=== PATIENT | female | born 1995 | race African-American/Black ===

== ENCOUNTER 2024-07-17 18:32 | Emergency (ER) | payer OTHER ==
[~2024-07-17] VITALS: Ht 152.4 cm; Wt 61.0 kg
[2024-07-17 18:34] VITALS: TEMP 36.5; O2SAT 100
[2024-07-17 19:00] VITALS: BP 128/87; PULSE 77; RESP 18
[2024-07-17] MEDS: HYDROCODONE/ACETAMINOPHEN 5/325MG TABLET PO STA (19:00)
[2024-07-17 19:12] LABS: BASOPHILS % 0.9 % (0.0-2.0); EOSINOPHILS % 6.6 % (0.0-5.0); HEMATOCRIT. 39.5 % (36.0-48.0); HEMOGLOBIN. 13.3 g/dL (12.0-16.0); LYMPHOCYTES % 34.8 % (20.0-50.0); MEAN CORPUSCULAR HEMOGLOBIN 30.6 pg (28.0-32.0); MEAN CORPUSCULAR HGB CONC 33.8 g/dL (31.0-37.0); MEAN CORPUSCULAR VOLUME 90.4 fL (81.0-99.0); MEAN PLATELET VOLUME 9.7 fl (7.4-10.4); MONOCYTES % 6.3 % (2.0-8.0); NEUTROPHILS % 51.4 % (40.0-76.0); PLATELET 224 x1000/uL (130-400); RED BLOOD CELL COUNT 4.37 mill/uL (4.2-5.4); RED CELL DISTRIBUTION WIDTH 13.6 % (11.6-14.6); WHITE BLOOD COUNT 6.9 x1000/uL (4.5-11.0)
[2024-07-17 19:18] LABS: CHLORIDE 105 mEq/L (98-107); POTASSIUM 4.1 mEq/L (3.5-5.1); SODIUM 141 mEq/L (136-145)
[2024-07-17 19:19] LABS: CALCIUM 9.8 mg/dL (8.7-10.4); CARBON DIOXIDE 28 mEq/L (21-32)
[2024-07-17 19:24] LABS: CREATININE 0.8 mg/dL (0.6-1.0); GLUCOSE 105 mg/dL (70-105); UREA NITROGEN BLOOD 8 mg/dL (9-23)
[2024-07-17 19:32] LABS: TROPONIN I HIGH SENSITIVITY < 4 ng/L (3.0-34)
[2024-07-17 19:42] LABS: HCG SCREEN NEGATIVE
== END 2024-07-17 19:57 | disposition home or self-care (01) ==
LOC: ER 18:32
DX: R07.89 Other chest pain (principal); J45.909 Unspecified asthma, uncomplicated
CPT/HCPCS: 36415; 71045; 80048; 84484; 84703; 85025; 93005; 99285